=== PATIENT | female | born 1985 | race Caucasian/White ===

== ENCOUNTER 2021-10-27 09:15 | Outpatient (CLI) | payer OTHER | END 2021-10-27 09:21 | disposition home or self-care (01) | LOC: RX STUDY 09:15 | PROVIDERS: ATTEND General Practice | DX: R47.02 Dysphasia (principal); C50.912 Malignant neoplasm of unspecified site of left female breast ==

== ENCOUNTER 2021-12-07 12:28 | Day surgery (SDC) | payer OTHER ==
[~2021-12-07 12:28] MED LIST: SYNTHROID50 MCG PO; TAMOXIFEN CITRA20 MG PO
[2021-12-07] MEDS ORDERED: KETO10TA2 PO (15:04)
== END 2021-12-07 20:55 | disposition home or self-care (01) ==
LOC: CIR.AMB 12:28
PROVIDERS: ATTEND Obstetrics & Gynecology
DX: N84.0 Polyp of corpus uteri (principal); Z85.3 Personal history of malignant neoplasm of breast; Z86.16 Personal history of COVID-19; E03.9 Hypothyroidism, unspecified